=== PATIENT | female | born 1980 | race Two or more races ===

== ENCOUNTER 2024-05-05 11:10 | Emergency (ER) | payer OTHER ==
[~2024-05-05] VITALS: Ht 167.6 cm; Wt 64.9 kg
[2024-05-05] MEDS ORDERED: MEPERIDINE HCL/PF 50 MG/ML VIAL IM STA (11:50)
[2024-05-05] MEDS ORDERED: PROMETHAZINE HCL 25 MG/ML AMPUL IM STA (11:50)
[2024-05-05] MEDS ORDERED: PROMETHAZINE HCL 25 MG/ML AMPUL ONE (12:03)
[2024-05-05 12:51] LABS: HEMATOCRIT 39.6 % (36.0-45.00); HEMOGLOBIN 13.1 g/dL (12.0-15.00); MEAN CELL VOLUME 89.2 fL (80.00-100.00); MEAN CORPUSCULAR HEMOGLOBIN 29.5 pg (27.00-32.0); MEAN CORPUSCULAR HGB CONC 33.1 g/dl (32.0-36.0); PLATELET COUNT 385 K/uL (150-450); RED BLOOD COUNT 4.44 M/uL (4.00-6.00); RED CELL DISTRIBUTION WIDTH 13.7 % (11.5-14.5)
[2024-05-05 13:36] LABS: CALCIUM 9.5 mg/dL (8.5-10.1); CREATININE SERUM 0.72 mg/dL (0.55-1.02); GFR 89.26; POTASSIUM 3.91 mEq/L (3.5-5.1)
[2024-05-05] MEDS ORDERED: TAMSULOSIN HCL 0.4 MG CAP PO ONE ×2 (17:29→17:30)
[2024-05-05 17:38] LABS: PH,URINE 5.5 (5.0-8.0); URINE APPEARANCE Cloudy; URINE BILIRRUBIN Negative (NEGATIVE); URINE BLOOD Large; URINE COLOR Orange; URINE GLUCOSE Negative (NEGATIVE); URINE LEUKOCYTE Small; URINE NITRATE Positive; URINE PROTEIN 30 (NEGATIVE)
[2024-05-05 17:39] LABS: URINE EPITHELIAL CELLS 20.4 uL (0.0-38.8); URINE RBC 5028.4 uL (0.0-20.8); URINE WBC 557.8 uL (0.0-23.2)
[2024-05-05 17:41] LABS: URINE BACTERIA > 9821.5 uL (0.0-1933); URINE KETONE 40 (NEGATIVE)
== END 2024-05-05 17:36 | disposition home or self-care (01) ==
LOC: ER 11:10
PROVIDERS: General Practice
DX: N23 Unspecified renal colic (principal)